=== PATIENT | female | born 1985 | race Caucasian/White ===

== ENCOUNTER 2019-07-08 21:44 | Observation (INO) | payer SELFPAY ==
[2019-07-08] MEDS ORDERED: LACTATED RINGERS 1,000 ML IV ONE (23:29)
[2019-07-08] MEDS ORDERED: LACTATED RINGERS 1,000 ML IV SCH (23:45)
[2019-07-09 00:32] LABS: Hematocrit 40.3 % (30.3-42.9); Hemoglobin 13.4 gm/dl (10.1-14.3); Mean Corpuscular HGB Conc 33 % (30-34); Mean Corpuscular Volume 90 fl (79-97); Platelet Count 161 K/mm3 (140-440); Red Blood Count 4.47 M/mm3 (3.65-5.03); Red Cell Distribution Width 14.8 % (13.2-15.2)
[2019-07-09] MEDS ORDERED: TERBUTALINE 1 MG/1 ML INJ SUB-Q ONE (03:43)
[2019-07-09] MEDS ORDERED: TERBUTALINE 1 MG/1 ML INJ ONE (03:43)
--- NOTE | 2019-07-09 03:44 | History and Physical Report ---
History of Present Illness Date of examination: 07/09/19 History of present illness: PT presented late on 07/08 with ctxs. H/O 3 C-sections. At @23:00, RN check her and she was fingertip/50/-2 and was tania every couple minutes. No VB or LOF. Good FM. IVF given and ctxs have spaced out a little but pt is still feeling them. Uncomplicated preg except for GDMA1. Fingerstick BG was 76. Past History Past Medical History: other (gestational diabetes) Past Surgical History: section (x 3) Family/Genetic History: diabetes, hypertension - Obstetrical History Expected Date of Delivery: 07/27/19 Actual Gestation: 37 Week(s) 3 Day(s) : 5 Para: 4 Hx # Term Pregnancies: 2 Number of Pregnancies: 2 Number of Living Children: 1 Medications and Allergies Allergies Allergy/AdvReac Type Severity Reaction Status Date / Time No Known Allergies Allergy Verified 09/29/15 07:42 Home Medications Medication Instructions Recorded Confirmed Last Taken Type Vit No.130/Iron/Folic 1 each PO DAILY 09/29/15 09/29/15 09/28/15 08:00 History [ Tablet] 1 Ferrous Sulfate [Feosol 325 MG tab] 325 mg PO BID #60 tablet 10/03/15 Unknown Rx Ibuprofen [Motrin 800 MG tab] 800 mg PO Q8HR PRN #30 tablet 10/03/15 Unknown Rx oxyCODONE /ACETAMINOPHEN [Percocet 2 tab PO Q6HR PRN #30 tablet 10/03/15 Unknown Rx 5/325] Active Meds: Active Medications Lactated Ringer's (Lactated Ringers) 1,000 mls @ 125 mls/hr IV DIRECT RADHA Review of Systems All systems: negative (except HPI) - Vital Signs Vital signs: Vital Signs Pulse BP 61 133/85 07/08/19 22:33 07/08/19 22:33 Temp Pulse Resp BP Pulse Ox 98.4 F 62 18 114/69 07/08/19 22:40 07/09/19 00:34 07/08/19 22:40 07/09/19 00:34 - Physical Exam Breasts: Abdomen: Positive: normal appearance, soft. Negative: distention, tenderness Vulva: both: normal Vagina: Positive: normal moisture. Negative: discharge Cervix: Negative: lesion, discharge Adnexa: both: normal Anus/Rectum: Positive: heme negative Extremities: - Obstetrical FHR: category 1 FHR comments: 120s Uterine Contraction Monitor Mode: External Cervical Dilatation: 0.5 Cervical Effacement Percentage: 50 station: -3 Uterine Contraction Frequency (min): q2-5, occ irreg Uterine Contraction Pattern: Irregular Results Result Diagrams: 07/08/19 23:10 All other labs normal. Assessment and Plan - Patient Problems (1) Uterine contractions Current Visit: Yes Status: Acute Plan to address problem: PT with contractions still but no cervical change in 4 hrs. No acute distress evident by pt during ctxs on toco. Not in labor but since she is still feeling contractions, will give a dose a terb. Continue to observe.
[2019-07-09] MEDS ORDERED: NIFEdipine*For Tocolysis only* 10 MG CAPSULE PO ONE (08:21)
[2019-07-09 13:02] VITALS: BP 108/60
--- NOTE | 2019-07-09 14:34 | Event Note ---
Date: 07/09/19 Patient was admitted overnight to rule out labor at 37 3/7 weeks gestation. She had irregular contractions which have spaced. Her cervical exam is unchanged. She is not in active labor at this time. She has had previous deliveries. She denies pain on her scar. She denies vaginal bleeding or leaking of fluid. She reports active movement. Category [address] Bender orders to discharge patient home. Patient to drink plenty of water at home and rest. Patient is to follow up with [facility] in 1-2 days at the office. Discussed this plan with patient and her significant other. Discussed with patient discharge instructions and warning signs. Advised patient to perform daily movement counting and to return promptly if labor, pain on her scar, leaking of water, vaginal bleeding, decreased movement, or any other problems. Patient voiced understanding of instructions.
--- NOTE | 2019-07-09 14:38 | Discharge Summary ---
Providers - Providers Date of Admission: 07/09/19 06:16 Date of discharge: 07/09/19 Attending physician: CARIDAD ABDUL Primary care physician: CARIDAD ABDUL Hospitalization Reason for admission: observation Delivery: other (undelivered) Discharge diagnosis: other (undelivered at 37 weeks, 3 days gestation) Pertinent studies: Electronic monitoring Hospital course: Stable hospital course Condition at discharge: Good Disposition: DC-01 TO HOME OR SELFCARE - Discharge Diagnoses (1) Term Status: Acute Plan - Provider Discharge Summary Activity: routine Diet: routine Instructions: routine Additional instructions: Count movements daily. Follow up at [facility] in 1-2 days; call office for appointment. Call your doctor immediately for: * Fever > 100.5 * Severe persistent headache * Shortness of breath * Reddened, hot, painful area to leg or breast - Follow up plan Follow up: CARIDAD ABDUL MD [Primary Care Provider] - 48 Hours
== END 2019-07-09 06:16 | disposition home or self-care (01) ==
LOC: TRG 21:44 → LD 07-09 06:16
PROVIDERS: ADMIT Obstetrics & Gynecology; ATTEND Obstetrics & Gynecology
DX: O62.9 Abnormality of forces of labor, unspecified (principal); Z3A.37 37 weeks gestation of pregnancy; Z98.891 History of uterine scar from previous surgery
CPT/HCPCS: 36415; 82962; 85027; 86592; 86850; 86900; 86901; 96372; G0378; J3105; J7120